=== PATIENT | male | born 2000 | race Hispanic/Latino ===

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

== ENCOUNTER 2024-08-21 08:54 | Emergency (ER) | payer OTHER ==
[2024-08-21] VITALS (7 sets, daily range): BP systolic 131–150; BP diastolic 63–88
[~2024-08-21] VITALS: Ht 170.2 cm; Wt 104.0 kg
[~2024-08-21 08:54] MED LIST changes: +IBUPROFEN600 MG PO; +KEFLEX500 MG PO
[2024-08-21] MEDS ORDERED: KETOROLAC TROMETHAMINE 30 MG/ML SDV IM ONE (09:10)
[2024-08-21] MEDS ORDERED: FLEXERIL5 M1 PO (10:52)
[2024-08-21] MEDS ORDERED: NAPROXEN500 MG PO (10:52)
== END 2024-08-21 11:00 | disposition home or self-care (01) | DRG 563 ==
LOC: ED 08:54
DX: S39.012A Strain of muscle, fascia and tendon of lower back, initial encounter (principal); S16.1XXA Strain of muscle, fascia and tendon at neck level, initial encounter; S90.31XA Contusion of right foot, initial encounter; S00.93XA Contusion of unspecified part of head, initial encounter; V44.5XXA Car driver injured in collision with heavy transport vehicle or bus in traffic accident, initial encounter